=== PATIENT | female | born 1940 | race African-American/Black ===

== ENCOUNTER 2019-04-10 17:30 | Inpatient (IN) | payer MEDICARE ==
[~2019-04-10] VITALS: Ht 154.9 cm; Wt 79.9 kg
[2019-04-10] MEDS ORDERED: TEMAZEPAM 7.5 MG CAPSULE PO PRN (22:30)
[2019-04-10] MEDS ORDERED: clonazePAM 0.5 MG TABLET PO PRN (22:30)
[2019-04-10] MEDS ORDERED: ACETAMINOPHEN 325 MG TABLET PO PRN (22:30)
[2019-04-10] MEDS ORDERED: BLOOD SUGAR DIAGNOSTIC 1 EACH STRIP IN ONE (22:30)
[2019-04-10] MEDS ORDERED: MAGNESIUM HYDROXIDE 30 ML UDC PO PRN (22:30)
[2019-04-10] MEDS ORDERED: GLIP5TAB13 PO (22:58)
[2019-04-10] MEDS ORDERED: BACL10TA PO (22:58)
[2019-04-10] MEDS ORDERED: MELO-107 PO (22:58)
[2019-04-10 23:35] VITALS: BP 135/78
[2019-04-10] MEDS: clonazePAM 0.5 MG TABLET PO PRN (23:51)
--- NOTE | 2019-04-10 23:53 | NUR ---
RN NOTES: PT. NOTED VERY AGGRESSIVE WITH STAFF HITTING KICKING , LOUD YELLING AND SCRAMING ,HYPERVERBAL, HYPERACTIVE, NOT FOLLOWING ANY REDIRECTIONS KLONOPIN 0.5 MG PO PRN GIVEN, WILL CONTINUE TO MONITOR.
--- NOTE | 2019-04-11 01:05 | NUR ---
ADMISSION NOTES: ADMITTED THIS 78Y/O FEMALE PATIENT ADMIT FROM [facility] , PT ADMITTED TO GPS ON 5150 HOLD DTO,DTS, PER HOLD, COMBATIVE,AGITAED,ATTACKING HER ROOMMATE, AGGRESSION.UPON FACE TO FACE ASSESSMENT PATIENT IS A&O X ,1 UNCOOPERATIVE , HYPERVERBAL,HYPERACTIVE AGGRESSIVE, CONFUSED DISORGNIZED, ANXIOUS, FLAT AFFECT,PARANOID DISHELVED ,EASILY GETS AGITATED, DENIES SI/HI AT THIS TIME , PT. IS POOR HISTORIAN, POOR INSIGHT ,POOR JUDGEMENT , PT. REFUSED TO TAKE SHOWER AT THIS TIME , PT. REFUSED TO SIGNS ADMISSION CONSENT PAPERS , DUE TO MENTAL STATUS AGRESSIVE/ UNCOOPERATIVE , BOTH MD AWARE AND NOTIFIED OF THE ADMISSION, BELONGINGS CONTRABAND WERE DONE , NURSING ASSESSMENT DONE ,PT. RIGHTS DISCUSS BY GOSPEL WORKER , PROVIDE THE PT. WITH HANDBOOK, AND MEDICATIONS GUIDE, ENVIRONMENTAL SAFETY CHECK DONE, ENCOURAGED PT. VERBALIZED ANY FEELING CONCERN TO STAFF, ORIENT TO UNIT POLICY, NO ACUTE DISTRESS NOTED,VITAL SIGNS WNL ,DENIES ANY PAIN AT THIS TIME ,WILL CONTINUE TO MONITOR FOR Q15 SAFETY AND BEHAVIOR.
--- NOTE | 2019-04-11 01:19 | NUR ---
RN NOTES: PT. FAMILY MEMEBER KACIE /NIECE NOTIFIED , AT THIS PHONE NUMBER # [phone]
--- NOTE | 2019-04-11 06:45 | NUR ---
RN NOTES: PT. REFUSED TO GIVE URINE SPECIMEN , UNABLE TO GET URINE SPECIMEN, ENCOURAGED X3 STILL REFUSED , PT. BEHAVIOR VERY AGGRESSIVE AND UNCOOPERATIVE, ENDORSE TO ON COMING RN FOR CONTINUITY OF CARE .
[2019-04-11 07:30] LABS: BASOPHILS % (AUTO) 0.4 % (0.0-2.0); EOSINOPHILS % (AUTO) 3.5 % (0.0-6.0); HEMATOCRIT 41 % (33-45); HEMOGLOBIN 13.4 g/dL (11.5-14.8); LYMPHOCYTES # (AUTO) 1.5 /CMM (0.8-4.8); LYMPHOCYTES % (AUTO) 17.4 % (20.0-44.0); MEAN CORPUSCULAR HGB CONC 33 g/dl (31.0-36.0); MEAN CORPUSCULAR VOLUME 91 fL (82-100); MONOCYTES # (AUTO) 0.7 /CMM (0.1-1.30); MONOCYTES % (AUTO) 8.2 % (2.0-12.0); NEUTROPHILS # (AUTO) 6.2 /CMM (1.8-8.9); NEUTROPHILS % (AUTO) 70.5 % (43.0-81.0); PLATELET COUNT (AUTO) 182 /CMM (150-450); RED BLOOD CELL COUNT(AUTO) 4.45 MIL/uL (4.0-5.2); WHITE BLOOD COUNT (AUTO) 8.7 K/uL (4.3-11.0)
[2019-04-11 07:42] LABS: ALBUMIN 3.3 g/dL (3.4-5.0); BILIRUBIN,TOTAL 0.5 mg/dL (0.2-1.0); CALCIUM, SERUM 8.7 mg/dL (8.5-10.1); CREATININE 0.9 mg/dL (0.6-1.3); MAGNESIUM 2.3 mg/dL (1.8-2.4); PHOSPHORUS 3.4 mg/dL (2.5-4.9); POTASSIUM 4.2 mmol/L (3.5-5.1); TOTAL PROTEIN, SERUM 7.2 g/dL (6.4-8.2)
[2019-04-11 08:00] VITALS: BP 155/70
[2019-04-11] MEDS: glipiZIDE 5 MG TABLET PO SCH ×2 (08:17→16:50)
[2019-04-11] MEDS: MELOXICAM 7.5 MG TABLET PO SCH (08:21)
[2019-04-11] MEDS ORDERED: BACLOFEN (10 MG) 10 MG TABLET PO SCH (09:00)
--- NOTE | 2019-04-11 10:50 | NUR ---
RN NOTE- PT C/O CONSTIPATION. MILK OF MAGNESIA 30 ML GIVEN PRN. WILL MONITOR.
--- NOTE | 2019-04-11 14:42 | NUR ---
Family Contact: SW called the pts niece, Lucy ([phone]), and was unable to make contact so the SW left a message on her voicemail stating that the SW would like a call back to discuss the pts treatment and initial discharge plan.
--- NOTE | 2019-04-11 14:45 | NUR ---
Facility Contact: SW called [facility] ([phone]) and spoke to Diamond in Admissions who stated that the pt can return once she is stable for discharge.
[2019-04-11 16:00] VITALS: BP 155/83
--- NOTE | 2019-04-11 16:08 | NUR ---
Family Contact: SW called the pts randy and Anabel LOPEZ ([phone]), and informed her about the average length of stay, the discharge plan and the treatment plan. She stated that she wanted to speak to the MD and the SW stated that she would pass along the message.
[2019-04-11 20:21] VITALS: BP 142/75
[2019-04-11] MEDS: risperiDONE-M 0.5 MG TAB.RAPDIS PO SCH (20:28)
[2019-04-11] MEDS: BENZTROPINE MESYLATE (1 MG) 1 MG TABLET PO SCH (20:28)
[2019-04-11] MEDS ORDERED: DEXTROSE 50%-WATER 50 ML DISP.SYRIN IV PRN (23:30)
[2019-04-11] MEDS: BLOOD SUGAR DIAGNOSTIC 1 EACH STRIP IN SCH (23:30)
--- NOTE | 2019-04-11 23:35 | NUR ---
RN NOTES: NOTIFIED, PT. AIC 7.4 , NEW ORDERS RECEIVED SLIDING SCALE MILD ACHS, NEW ORDES RECIVED AND CARRIED OUT.
--- NOTE | 2019-04-11 23:36 | NUR ---
RN NOTES; PT, REFUSED ACCU CHECK ,ENCOURAGEDX3, RISKS AND BENEFITS EXPLINED, STILL REFUSED, PER PT. I AM SLEEPING , I DONT WANT CHECK AT THIS TIME.
--- NOTE | 2019-04-12 05:20 | NUR ---
RN NOTES: COLLECT URINE SPECIMEN AND SEND OUT TO THE LAB.
[2019-04-12] MEDS: INSULIN REGULAR, HUMAN 100 UNIT/ML 3 ML VIAL SQ PRN ×2 (07:35→11:44)
[2019-04-12] MEDS: BLOOD SUGAR DIAGNOSTIC 1 EACH STRIP IN SCH ×4 (07:35→21:14)
--- NOTE | 2019-04-12 07:36 | NUR ---
RN NOTE: ACCUCHECK 141, PT REFUSED INSULIN. "HERNANDEZ SAYS NO".
[2019-04-12 08:00] VITALS: BP 157/80
[2019-04-12 08:21] LABS: APPEARANCE,URINE CLEAR (CLEAR); BILIRUBIN,URINE NEGATIVE (NEGATIVE); BLOOD, URINE NEGATIVE Ery/uL (NEGATIVE); COLOR,URINE YELLOW (YELLOW); KETONES,URINE NEGATIVE (NEGATIVE); LEUKOCYTE ESTERASE ,URINE NEGATIVE (NEGATIVE); NITRITE, URINE NEGATIVE (NEGATIVE); PROTEIN,URINE NEGATIVE (NEGATIVE); UGLUCOSE NEGATIVE (NEGATIVE); UROBILINOGEN,URINE 0.2 EU/dL (0.2)
[2019-04-12] MEDS: MELOXICAM 7.5 MG TABLET PO SCH (08:21)
[2019-04-12] MEDS: glipiZIDE 5 MG TABLET PO SCH ×2 (08:21→16:27)
--- NOTE | 2019-04-12 10:26 | NUR ---
Initial Discharge Plan: Pt currently resides at [facility] located at [address] [place] [id number]; . Per pt, she would like to return to her home. Per pts JESSICA and Diamond from the Admissions department at the facility, the pt is welcome to return. SHON will work with the pt and the MD regarding appropriate discharge planning. SW will form a safe and proper discharge.
[2019-04-12 16:00] VITALS: BP 155/74
--- NOTE | 2019-04-12 17:29 | NUR ---
RN NOTE: ACCUCHECK 124, NO INSULIN COVERAGE
--- NOTE | 2019-04-12 17:54 | NUR ---
RN NOTE: PT NOTED TO BE CONGESTED. LUNGS CLEAR BILATERALLY AND THROUGHOUT. NO FEVER NOTED. COUGH WITH CLEAR SPUTUM. PT REPORTS TAKING A DECONGESTANT AT HOME BUT DOES NOT RECALL NAME OF MEDICATION. NOTIFIED GABRIEL. ORDER FOR CHEST X-RAY.
[2019-04-12 20:05] VITALS: BP 142/92
[2019-04-12] MEDS: BENZTROPINE MESYLATE (1 MG) 1 MG TABLET PO SCH (20:19)
[2019-04-12] MEDS: risperiDONE-M 0.5 MG TAB.RAPDIS PO SCH (20:19)
--- NOTE | 2019-04-12 21:15 | NUR ---
RN NOTES; PT. HS BLOOD SUGAR IS 142 , ENCOURAGED X3 STILL REFUSED , PT STRONGLY REFUSED TO TAKING COVERAGE ,
[2019-04-13] MEDS: clonazePAM 0.5 MG TABLET PO PRN (01:41)
[2019-04-13] MEDS: BLOOD SUGAR DIAGNOSTIC 1 EACH STRIP IN SCH ×4 (07:30→21:28)
[2019-04-13 08:00] VITALS: BP 160/99
[2019-04-13] MEDS: INSULIN REGULAR, HUMAN 100 UNIT/ML 3 ML VIAL SQ PRN (08:04)
[2019-04-13] MEDS: glipiZIDE 5 MG TABLET PO SCH ×2 (08:05→16:49)
[2019-04-13] MEDS: MELOXICAM 7.5 MG TABLET PO SCH (08:05)
[2019-04-13] MEDS ORDERED: risperiDONE-M 0.5 MG TAB.RAPDIS PO SCH ×2 (15:00→15:02)
[2019-04-13] MEDS: risperiDONE-M 0.5 MG TAB.RAPDIS PO SCH ×2 (15:00→16:48)
[2019-04-13 16:00] VITALS: BP 147/97
--- NOTE | 2019-04-13 16:43 | NUR ---
PATIENT REFUSED ABILIFY
--- NOTE | 2019-04-13 16:50 | NUR ---
PATIENT REFUSED INSULIN, STATED "HERNANDEZ WOULD NOT WANT ME TO TAKE THE INSULIN"
[2019-04-13] MEDS: BENZTROPINE MESYLATE (1 MG) 1 MG TABLET PO SCH (19:51)
--- NOTE | 2019-04-13 19:51 | NUR ---
GPS/RN NOTE: TOOK HER COGENTIN 0.5 MG TAB PO DUE FOR 1999.
--- NOTE | 2019-04-13 19:52 | NUR ---
GPS/RN NOTE: COMFORTABLE, RESTING IN BED, A/O X1-2, NO APPARENT DISTRESS NOTED. WILL MONITOR THROUGH THE SHIFT FOR SAFETY AND BEHAVIOR. CALM, QUIET AND COOPERATIVE.
[2019-04-13 20:28] VITALS: BP 120/64
--- NOTE | 2019-04-13 21:28 | NUR ---
GPS/RN NOTE: ACCUCHECK 169 MG/DL, REFUSED INSULIN COVERAGE. OFFERED X2 AND HS SNACKS, STILL REFUSED.
[2019-04-14] MEDS: BLOOD SUGAR DIAGNOSTIC 1 EACH STRIP IN SCH ×4 (07:27→21:32)
[2019-04-14] MEDS: INSULIN REGULAR, HUMAN 100 UNIT/ML 3 ML VIAL SQ PRN (07:32)
[2019-04-14 08:00] VITALS: BP 181/72
[2019-04-14] MEDS: risperiDONE-M 0.5 MG TAB.RAPDIS PO SCH ×2 (09:44→16:46)
[2019-04-14] MEDS: glipiZIDE 5 MG TABLET PO SCH ×2 (09:44→16:47)
[2019-04-14] MEDS: MELOXICAM 7.5 MG TABLET PO SCH (09:44)
--- NOTE | 2019-04-14 09:49 | NUR ---
Probable Cause Hearing Notification: SW called the pts randy and JESSICAAnabel ([phone]), and informed her that the pt will be having a Probable Cause hearing today and explained what the hearing entails and what the possible results are. Pts DAVIDOA stated that she would like to be present on a phone call if possible and the SW stated that she would make that known to the police liaison officer.
[2019-04-14] MEDS: FLUTICASONE PROPIONATE 16 GM BOTTLE NS SCH (12:35)
--- NOTE | 2019-04-14 13:00 | NUR ---
Family Contact: SHON called the pts niece and DPAnabel CANO ([phone]), and informed her that the pts hold was upheld and the reason that she could not be called in for the hearing was due to the director speech and hearing feeling like it would be a HIPAA violation. SHON informed her that the hearing was upheld and she stated that was the result she wanted.
[2019-04-14 16:00] VITALS: BP 166/94
[2019-04-14] MEDS: hydrALAZINE HCL 25 MG TABLET PO PRN (17:31)
--- NOTE | 2019-04-14 17:57 | NUR ---
PATIENT REFUSED 1700 INSULIN
[2019-04-14] MEDS: MAG HYDROX/AL HYDROX/SIMETH 30 ML UDC PO PRN (18:59)
--- NOTE | 2019-04-14 19:00 | NUR ---
PATIENT C/O INDIGESTION. PRN MAALOX GIVEN.
[2019-04-14] MEDS: BENZTROPINE MESYLATE (1 MG) 1 MG TABLET PO SCH (19:25)
--- NOTE | 2019-04-14 19:55 | NUR ---
GPS/RN NOTE: PATIENT COMFORTABLY RESTING IN BED, TOOK HER 8PM MEDICATION COGENTIN 0.5 MG TAB. NO APPARENT DISTRESS NOTED. WILL CONTINUE TO MONITOR FOR SAFETY AND BEHAVIOR.
[2019-04-14 20:52] VITALS: BP 142/104
--- NOTE | 2019-04-14 21:32 | NUR ---
GPS/RN NOTE: ACCUCHECK 177 MG/DL, REFUSED SLIDING SCALE, STATED THAT SHE DOES MOT TAKE INSULIN. EXPLAINED RISKS AND BENEFITS, STILL REFUSED.
[2019-04-15 05:26] VITALS: BP 170/80
[2019-04-15] MEDS: hydrALAZINE HCL 25 MG TABLET PO PRN (05:33)
--- NOTE | 2019-04-15 05:33 | NUR ---
GPS/RN NOTE: BP NOW 170/80, PULSE 77, HYDRALAZINE 25 MG TAB PO GIVEN.
[2019-04-15 08:00] VITALS: BP 148/81
[2019-04-15] MEDS: INSULIN REGULAR, HUMAN 100 UNIT/ML 3 ML VIAL SQ PRN ×2 (08:26→12:09)
[2019-04-15] MEDS: BLOOD SUGAR DIAGNOSTIC 1 EACH STRIP IN SCH ×4 (08:27→20:59)
[2019-04-15] MEDS: MELOXICAM 7.5 MG TABLET PO SCH (09:00)
[2019-04-15] MEDS: risperiDONE-M 0.5 MG TAB.RAPDIS PO SCH ×2 (09:00→16:36)
[2019-04-15] MEDS: FLUTICASONE PROPIONATE 16 GM BOTTLE NS SCH ×2 (09:00→16:35)
[2019-04-15] MEDS: glipiZIDE 5 MG TABLET PO SCH ×2 (09:00→16:34)
[2019-04-15] MEDS: clonazePAM 0.5 MG TABLET PO PRN (09:52)
[2019-04-15 16:00] VITALS: BP 141/86
[2019-04-15] MEDS: MAG HYDROX/AL HYDROX/SIMETH 30 ML UDC PO PRN (16:35)
[2019-04-15 20:05] VITALS: BP 151/94
[2019-04-15] MEDS: BENZTROPINE MESYLATE (1 MG) 1 MG TABLET PO SCH (20:33)
--- NOTE | 2019-04-15 20:59 | NUR ---
GPS/RN NOTE: ACCUCHECK 144 MG/DL, REFUSED INSULIN COVERAGE, OFFERED HS SNACKS.
[2019-04-15 21:38] VITALS: BP 158/81
--- NOTE | 2019-04-15 21:38 | NUR ---
GPS/RN NOTE: BP NOW 158/81, PULSE 73
[2019-04-16 05:47] VITALS: BP 167/78
[2019-04-16] MEDS: hydrALAZINE HCL 25 MG TABLET PO PRN (05:48)
--- NOTE | 2019-04-16 05:49 | NUR ---
GPS/RN NOTE: LATEST BP 167/78, PULSE 66, HYDRALAZINE 25 MG TAB PO GIVEN. WILL CONTINUE TO MONITOR.
[2019-04-16] MEDS: BLOOD SUGAR DIAGNOSTIC 1 EACH STRIP IN SCH ×4 (07:29→22:21)
[2019-04-16 08:00] VITALS: BP 154/85
[2019-04-16] MEDS: glipiZIDE 5 MG TABLET PO SCH ×2 (08:13→16:15)
[2019-04-16] MEDS: MELOXICAM 7.5 MG TABLET PO SCH (08:13)
[2019-04-16] MEDS: risperiDONE-M 0.5 MG TAB.RAPDIS PO SCH ×2 (08:13→16:15)
[2019-04-16] MEDS: FLUTICASONE PROPIONATE 16 GM BOTTLE NS SCH (08:14)
[2019-04-16 16:00] VITALS: BP 143/64
[2019-04-16 19:54] VITALS: BP 150/89
[2019-04-16] MEDS: BENZTROPINE MESYLATE (1 MG) 1 MG TABLET PO SCH (20:10)
[2019-04-16 20:35] VITALS: BP 150/89
--- NOTE | 2019-04-16 21:03 | NUR ---
GPS RN NOTE PATIENT HAS C/O LEFT LOWER RIB CAGE AREA PAIN, UNABLE TO SCALE BUT STATED MILD, TYLENOL 650 MG PRN GIVEN. WILL REASSESS FOR EFFECTIVENESS.
--- NOTE | 2019-04-16 22:32 | NUR ---
GPS RN NOTE REASSESSED PATIENT OR LEFT RIB CAGE AREA PAIN, PATIENT STATED NO PAIN AT THIS TIME & IT GOT BETTER AFTER TYLENOL WAS GIVEN. WILL MONITOR THE PATIENT CLOSELY.
--- NOTE | 2019-04-17 00:07 | NUR ---
GPS RN NOTE DURING MAKING ROUNDS, PATIENT VERBALIZED THAT SHE IS UNABLE TO SLEEP, OFFERED TO GIVE RESTORIL 15 GM FOR SLEEP, TOOK OUT THE MEDICINE, SOON APPROACHED THE PATIENT BACK TO GIVE THE MEDICINE, PT. REFUSED TO TAKE RESTORIL STATED, HERNANDEZ TOLD HER NOT TO TAKE IT. DESPITE OF EXPLANATIONS PT. CONTINUED TO REFUSE TO TAKE RESTORIL STATING THE SAME THING ABOUT HERNANDEZ. WHEN IF SHE IS HEARING ANY VOICES OR SEEING ANYTHING, PT. DENIES. WILL MONITOR CLOSELY.
[2019-04-17 04:34] VITALS: BP 141/79
--- NOTE | 2019-04-17 06:04 | NUR ---
GPS RN NOTE PT. SLEPT INTERMITTENTLY AT NIGHT. NO AGITATION EPISODES NOTED. PT. IS PARANOID AT TIMES, TALKING ABOUT JEHOVAH & REFUSES MEDS/INSULIN. NO APPARENT DISTRESS NOTED. BED ALARM ON. WILL CONTINUE TO MONITOR CLOSELY FOR SAFETY & BEHAVIOR.
[2019-04-17] MEDS: BLOOD SUGAR DIAGNOSTIC 1 EACH STRIP IN SCH ×4 (07:34→21:24)
[2019-04-17] MEDS: INSULIN REGULAR, HUMAN 100 UNIT/ML 3 ML VIAL SQ PRN ×3 (07:35→21:25)
[2019-04-17 08:00] VITALS: BP 160/77
[2019-04-17] MEDS: glipiZIDE 5 MG TABLET PO SCH ×2 (08:24→16:36)
[2019-04-17] MEDS: MELOXICAM 7.5 MG TABLET PO SCH (08:24)
[2019-04-17] MEDS: risperiDONE-M 0.5 MG TAB.RAPDIS PO SCH ×3 (08:24→16:37)
[2019-04-17] MEDS: FLUTICASONE PROPIONATE 16 GM BOTTLE NS PRN (08:33)
[2019-04-17] MEDS: FLUTICASONE PROPIONATE 16 GM BOTTLE NS SCH (08:34)
--- NOTE | 2019-04-17 15:26 | NUR ---
Group Note: SW went to patient's room to invite patient to attend today's support group at 1:00pm regarding holiday sensory activity being held in the activities room. Patient presented laying on their bed and stated, "No thank you, I don't celebrate holidays". SW encouraged the pt. to attend and just sit in. However, the pt. refused. SW respected the pt.'s self-determination.
[2019-04-17 16:00] VITALS: BP 142/73
[2019-04-17 20:15] VITALS: BP 144/84
[2019-04-17] MEDS: BENZTROPINE MESYLATE (1 MG) 1 MG TABLET PO SCH (20:49)
--- NOTE | 2019-04-17 21:09 | NUR ---
GPS NOTE PATIENT REFUSED INSULIN COVERAGE FOR HER 150 BLOOD SUGAR.
--- NOTE | 2019-04-17 22:00 | NUR ---
RN NOTES; PT. HS BLOOD SUGAR IS 150 AND PT. REFUSED TO TAKING COVERAGE, ENCOURAGED X3 STILL REFUSED , PT STRONGLY REFUSED TO TAKING COVERAGE ,
[2019-04-18] MEDS: BLOOD SUGAR DIAGNOSTIC 1 EACH STRIP IN SCH ×4 (07:30→21:00)
[2019-04-18 08:00] VITALS: BP 163/95
[2019-04-18] MEDS: glipiZIDE 5 MG TABLET PO SCH ×2 (08:38→16:29)
[2019-04-18] MEDS: MELOXICAM 7.5 MG TABLET PO SCH (08:38)
[2019-04-18] MEDS: risperiDONE-M 0.5 MG TAB.RAPDIS PO SCH ×3 (08:39→16:29)
[2019-04-18] MEDS: FLUTICASONE PROPIONATE 16 GM BOTTLE NS SCH (08:40)
[2019-04-18] MEDS: INSULIN REGULAR, HUMAN 100 UNIT/ML 3 ML VIAL SQ PRN (12:29)
--- NOTE | 2019-04-18 13:05 | NUR ---
SNF Contact: Diamond from [facility] contacted the SW and stated that she would like paperwork to be sent over the day before her discharge. SW stated that the pt is going to be discharged on Wednesday and therefore the SW will send the fax on . She stated that the pt will be accepted back.
[2019-04-18 16:25] VITALS: BP 146/87
[2019-04-18 20:22] VITALS: BP 162/61
[2019-04-18] MEDS: BENZTROPINE MESYLATE (1 MG) 1 MG TABLET PO SCH (20:54)
[2019-04-18] MEDS: TEMAZEPAM 15 MG CAPSULE PO PRN (22:03)
[2019-04-19] MEDS: BLOOD SUGAR DIAGNOSTIC 1 EACH STRIP IN SCH ×4 (07:45→22:22)
[2019-04-19] MEDS: INSULIN REGULAR, HUMAN 100 UNIT/ML 3 ML VIAL SQ PRN ×2 (07:45→12:18)
[2019-04-19 08:00] VITALS: BP 157/76
[2019-04-19] MEDS: glipiZIDE 5 MG TABLET PO SCH ×2 (08:37→16:50)
[2019-04-19] MEDS: MELOXICAM 7.5 MG TABLET PO SCH (08:37)
[2019-04-19] MEDS: FLUTICASONE PROPIONATE 16 GM BOTTLE NS PRN ×2 (08:37→08:41)
[2019-04-19] MEDS: risperiDONE-M 0.5 MG TAB.RAPDIS PO SCH ×3 (08:40→16:50)
[2019-04-19] MEDS: FLUTICASONE PROPIONATE 16 GM BOTTLE NS SCH (08:43)
[2019-04-19 16:00] VITALS: BP 135/93
[2019-04-19 20:20] VITALS: BP 153/83
[2019-04-19] MEDS: BENZTROPINE MESYLATE (1 MG) 1 MG TABLET PO SCH (20:27)
[2019-04-19] MEDS: TEMAZEPAM 15 MG CAPSULE PO PRN (22:20)
[2019-04-20] MEDS: BLOOD SUGAR DIAGNOSTIC 1 EACH STRIP IN SCH ×4 (07:49→21:19)
[2019-04-20] MEDS: INSULIN REGULAR, HUMAN 100 UNIT/ML 3 ML VIAL SQ PRN ×2 (07:56→21:20)
[2019-04-20 08:00] VITALS: BP 164/71
[2019-04-20] MEDS: risperiDONE-M 0.5 MG TAB.RAPDIS PO SCH ×3 (08:35→17:06)
[2019-04-20] MEDS: glipiZIDE 5 MG TABLET PO SCH ×2 (08:35→17:06)
[2019-04-20] MEDS: MELOXICAM 7.5 MG TABLET PO SCH (08:35)
[2019-04-20] MEDS: FLUTICASONE PROPIONATE 16 GM BOTTLE NS SCH (08:36)
--- NOTE | 2019-04-20 09:08 | NUR ---
SNF Contact: SHON faxed updated notes to [facility] with attn to Diamond to the fax number: [phone].
--- NOTE | 2019-04-20 10:18 | NUR ---
SNF Contact: Chau from [facility] (SNF) called the SW and stated that [facility] believes that their sister facility would be able to manage the pt better. She stated that she will call the SW once her DON looks through the referral.
--- NOTE | 2019-04-20 10:21 | NUR ---
Family Contact: SW called the pts randy and Anabel LOPEZ ([phone]), and informed her that the SW received a call from [facility] stating that the previous facility feels that she would be more appropriate for them. Pts randy stated that she does not like the facility, [facility], and stated that she would prefer for the pt to return to her previous one. SW informed her to contact [facility] and inquire about why they are not accepting the pt back.
--- NOTE | 2019-04-20 14:10 | NUR ---
SNF Contact: SW called Diamond from [facility] and informed her that the SW would like to know why their sister facility will be taking the pt instead of their facility. She stated that she will speak to her Director and then call the SW back.
--- NOTE | 2019-04-20 14:38 | NUR ---
Family Contact: SHON called the pts niece and Anabel LOPEZ ([phone]), and left a voicemail that informed her that the pt will be returning to her original facility.
--- NOTE | 2019-04-20 14:38 | NUR ---
SNF Contact: Diamond from [facility] contacted the SW and stated that the pt will be returning to their facility the next day.
[2019-04-20 16:00] VITALS: BP 143/80
[2019-04-20] MEDS: BENZTROPINE MESYLATE (1 MG) 1 MG TABLET PO SCH (20:11)
[2019-04-21] MEDS: INSULIN REGULAR, HUMAN 100 UNIT/ML 3 ML VIAL SQ PRN ×2 (07:45→12:08)
[2019-04-21] MEDS: BLOOD SUGAR DIAGNOSTIC 1 EACH STRIP IN SCH ×2 (07:45→12:06)
[2019-04-21] MEDS: risperiDONE-M 0.5 MG TAB.RAPDIS PO SCH ×2 (08:14→12:30)
[2019-04-21] MEDS: glipiZIDE 5 MG TABLET PO SCH (08:14)
[2019-04-21] MEDS: MELOXICAM 7.5 MG TABLET PO SCH (08:14)
[2019-04-21] MEDS: FLUTICASONE PROPIONATE 16 GM BOTTLE NS SCH (08:17)
[2019-04-21] MEDS ORDERED: DOCUSATE SODIUM 100 MG CAPSULE PO SCH (09:00)
--- NOTE | 2019-04-21 09:38 | NUR ---
DR. LO GAVE AN ORDER TO D/C HOLD AND D/C TO [facility], TO CONTINUE SAME MEDS INCLUDING PRN AND TO FOLLOW UP WITH PSYCH AND MEDICAL DOCTORS.
--- NOTE | 2019-04-21 12:07 | NUR ---
Discharge Note: Pt was discharged [facility] located at [address] [place] [address]; . Pt was transported via [facility] at 1PM. Pts niece, Anabel ([phone]), was made aware. Upon discharge, the pt appeared to be in a euthymic mood and presented with a calm affect. Pt denied both suicidal and homicidal ideation as well as auditory and visual hallucinations. Pt will be under the care of her psychiatrist, Dr. Moy, located at [address] [place] [address]; and her tax services specialist, Dr. Indio Szymanski, located at [address] [place] [address]; .
[2019-04-21 12:30] VITALS: BP 170/60
[2019-04-21] MEDS: hydrALAZINE HCL 25 MG TABLET PO PRN (12:30)
--- NOTE | 2019-04-21 14:17 | NUR ---
NURSING HOME MANAGER NOTES PT TO DISCHARGE TO [facility], REPORT GIVEN TO JAZMYN/LASHON. PT TRANSPORTED VIA AMBULANCE. PT A/O X2-3, AMBULATORY WITH STEADY GAIT, MED COMPLIANT. TOLERATING RA, WITH NO ACUTE RESPIRATORY DISTRESS. PT DENIES ANY PAIN OR DISCOMFORT AT THE TIME OF DISCHARGE. PT DENIES ANY SI/HI. SKIN INTACT. DISCHARGE INSTRUCTION SIGNED BY PATIENT. ALL NEEDS AND CARE PROVIDED. CN/NELY AND HOSPITALIST/SA AND PSYCHIATRIST AWARE OF DISCHARGE. PT'S VITALS STABLE, RECHECKED BY 2 PARAMEDICS. PT LEFT THE UNIT AT 1410.
== END 2019-04-21 14:10 | DRG 885 ==
LOC: GPS 21:55
PROVIDERS: ADMIT Psychiatry & Neurology Psychosomatic Medicine; ATTEND Registered Nurse
DX: F20.0 Paranoid schizophrenia (principal); E11.65 Type 2 diabetes mellitus with hyperglycemia; G89.4 Chronic pain syndrome; E66.9 Obesity, unspecified; Z68.33 Body mass index [BMI] 33.0-33.9, adult; M06.9 Rheumatoid arthritis, unspecified; Z88.0 Allergy status to penicillin; R45.850 Homicidal ideations; J30.9 Allergic rhinitis, unspecified; F09 Unspecified mental disorder due to known physiological condition; Z91.19 Patient's noncompliance with other medical treatment and regimen
CPT/HCPCS: 36415; 71045-TC; 80053-TC; 80061-TC; 81000-TC; 82962-TC; 83735-TC; 84100-TC; 85025-TC; 87081-TC; J1815